=== PATIENT | female | born 1980 | race Hispanic/Latino ===

== ENCOUNTER → 2019-09-14 | Outpatient (CLI) | payer OTHER | END | disposition home or self-care (01) | LOC: RAH 13:01 | PROVIDERS: ATTEND Obstetrics & Gynecology | DX: N85.2 Hypertrophy of uterus (principal); D25.9 Leiomyoma of uterus, unspecified | CPT/HCPCS: 76830 ==

== ENCOUNTER 2025-01-24 19:43 | Emergency (ER) | payer OTHER ==
[~2025-01-24] VITALS: Ht 165.1 cm; Wt 139.3 kg
--- NOTE | 2025-01-24 20:09 | ERN ---
General Chief Complaint: Chest Pain Stated Complaint: CHEST PAIN Time Seen by MD: 19:44 Time Seen by Midlevel: 19:44 Source: patient History of Present Illness Initial Comments Patient Is a 45-year-old morbidly obese patient presenting to the emergency department for evaluation of left-sided chest pain that started 3 hours prior to arrival while she was walking around the store. She initially thought the pain was musculoskeletal in nature since over the last couple of days she has been having an increase in physical activity. She has been playing outdoor sports. She reports taking 800 mg of ibuprofen with no relief. Given that the chest pain persistent she decided to report to the ER for further evaluation. She specifically denies any shortness of breath, direct injury, or any other symptoms at this time. She reports a past medical history of hypothyroidism, and asthma. Allergies: Coded Allergies: acetaminophen (Unverified Allergy, Unknown, 01/24/25) Past Medical History Past Medical History: Asthma, Hypothyroid Past Surgical History: Other ROS Dictation CONSTITUTIONAL: Negative except for HPI HEAD/FACE: Negative except for HPI EENT: Negative except for HPI RESPIRATORY: Negative except for HPI GASTROINTESTINAL/ABDOMINAL: Negative except for HPI GENITOURINARY: Negative except for HPI MUSCULOSKELETAL: Negative except for HPI INTEGUMENTARY: Negative except for HPI NEUROLOGICAL/PSYCH: Negative except for HPI HEMATOLOGIC/LYMPHATIC: Negative except for HPI All Systems Negative, Except as noted above. 13 point review of systems assessed and all negative except for above. Physical Exam Physical Exam Dictation Vital Signs reviewed General Appearance: Alert, oriented x 3, no acute distress, well developed, nourished. Head and Face: non-traumatic. Eyes: PERRL, pink conjunctivas, eyelid no trauma, anterior chamber with arcus senilis. Ears: Pinnas intact and no signs of trauma or erythema ear canals clear and no discharge TM no erythema Nose: No discharge, no bleeding. Oropharynx: Mouth normal, tongue pink, pharynx clear,no erythema, tonsils no exudates, no abscesses noted, mucous membrane moist Neck: Supple, non-tender, no thyromegaly, no masses, no JVD, no bruits Breast:Deferred Chest:No tenderness, no crepitus, no paradoxical movement, no retractions Lungs:Clear, well-ventilated, symmetric, no rales, no wheezing, no rhonchi, no stridor, good breath sounds bilaterally Heart: Regular rate, regular rhythm, no murmur, no gallops Vascular: no peripheral edema, Abdomen: Soft, positive bowel sounds, nondistended, no guarding, nontender, no rebound, no masses no hepatomegaly, no splenomegaly, no Viramontes's sign, no hernias. Rectal: Deferred Genital: Deferred Neurological: Normal speech, motor function intact, sensory function intact Musculoskeletal: Neck nontender, full range of motion, back nontender, full range of motion, Extremities: nontender, full range of motion Skin: Color pink, dry, no turgor, no rash, no lacerations, no abrasions, no contusions. Lymphatic: Deferred Results Laboratory and Microbiology Lab and Micro Result Laboratory Tests Test 01/24/25 20:15 White Blood Count 8.5 K/uL (4.8-10.8) Red Blood Count 5.01 MIL/uL (4.00-5.50) Hemoglobin 11.4 g/dL (12.0-16.0) L Hematocrit 36.9 % (36-48) Mean Corpuscular Volume 73.7 fL (79-99) L Mean Corpuscular Hemoglobin 22.8 pg (27.0-33.0) L Mean Corpuscular Hemoglobin Concent 30.9 g/dL (32.0-36.0) L Red Cell Distribution Width 16.3 % (11.0-15.5) H Platelet Count 457 K/uL (130-400) H Mean Platelet Volume 9.1 fL (7.5-10.5) Immature Granulocyte % (Auto) 0.4 % (0-1) Neutrophils (%) (Auto) 69.1 % (40.0-77.0) Lymphocytes (%) (Auto) 24.2 % (21.0-51.0) Monocytes (%) (Auto) 4.7 % (3.0-13.0) Eosinophils (%) (Auto) 0.9 % (0.0-8.0) Basophils (%) (Auto) 0.7 % (0.0-5.0) Neutrophils # (Auto) 5.9 K/uL (1.8-7.7) Lymphocytes # (Auto) 2.1 K/uL (1.0-4.8) Monocytes # (Auto) 0.4 K/uL (0.1-1.0) Eosinophils # (Auto) 0.08 K/uL (0.00-0.70) Basophils # (Auto) 0.06 K/uL (0.00-0.20) Absolute Immature Granulocyte (auto 0.03 K/uL (0-1) Nucleated Red Blood Cells 0.0 % (0.0-0.19) Red Blood Cell Morphology See comments D-Dimer Quantitative (PE/DVT) 374 ng/mL (0-500) Sodium Level 137 mmol/L (136-145) Potassium Level 3.5 mmol/L (3.5-5.1) Chloride Level 100 mmol/L (101-111) L Carbon Dioxide Level 28 mmol/L (21-32) Blood Urea Nitrogen 11 mg/dL (7-18) Creatinine 0.8 mg/dL (0.5-1.0) Glomerular Filtration Rate Calc 93 mL/min (>90) Random Glucose 103 mg/dL (70-105) Total Calcium 9.1 mg/dL (8.5-10.1) Magnesium Level 1.70 mg/dL (1.80-2.40) L Total Creatine Kinase 53 U/L (21-232) Troponin I High Sensitivity < 4 ng/L (4-50) L B-Type Natriuretic Peptide 81 pg/mL (0-100) Serum Test, Qualitative NEGATIVE (NEGATIVE) Labs Reviewed?: Yes MDM MDM: Differential diagnosis: ACS, musculoskeletal pain, pneumonia, pneumothorax There are no social concerns with this patient. Prescription drug management Prescriptions will include: None Medical management and examination interpretation discussions were had by me with other qualified healthcare professionals as indicated for the patient's care. ED Course Orders Procedure Category Date Status Time 12 Lead Ekg Tracing- EKG 01/24/25 Logged Technical 20:02 Cbc With Differential LAB 01/24/25 Complete 20:02 Basic Metabolic Panel LAB 01/24/25 Complete 20:02 B-Type Natriuretic LAB 01/24/25 Complete Peptide 20:02 Creatine Kinase, Total LAB 01/24/25 Complete 20:02 Urinalysis Profile LAB 01/24/25 Logged 20:02 Troponin I High LAB 01/24/25 Complete Sensitivity 20:02 Drug Screen Urine LAB 01/24/25 Logged 20:02 Magnesium LAB 01/24/25 Complete 20:02 Testing, LAB 01/24/25 Complete Serum Hcg 20:02 Chest 1vw RAD 01/24/25 Resulted 20:02 D-Dimer LAB 01/24/25 Complete 20:02 Vital Signs Date Time Temp Pulse Resp B/P (MAP) Pulse Ox O2 Delivery O2 Flow Rate FiO2 01/24/25 19:56 98.4 99 20 154/[address] [facility] [address] [place] [address] IMAGING REPORT Signed PATIENT: VITALY VALENZUELA V MR#: [id number] : 1980 SEX: F AGE: 45 LOCATION: [facility] ORDER 02 STATUS: REG ER REPORT#: [id number] SERVICE 01 REASON: cp ORDERING PHYSICIAN: CARLOS HUMPHREY PROCEDURE: CXR1VW - CHEST 1VW PORTABLE CHEST RADIOGRAPH INDICATION: cp COMPARISON: None FINDINGS: Heart size is normal. The pulmonary vascularity and [place] appear normal. No abnormal pulmonary parenchymal opacity or consolidation identified. No significant pleural effusion noted. No pneumothorax detected. IMPRESSION: No radiographic evidence for any acute cardiopulmonary process. DICTATED BY: JOMAR OLMEDO MD DATE: 01/24/252117 ELECTRONICALLY SIGNED BY: JOMAR OLMEDO MD DATE: 01/24/252122 HEART Score Response (Comments) Value History: Low suspicion (0) 0 EKG: Normal 0 Age: 45-65yrs (+1) 1 Risk Factors: 1-2 risk factors (+1) 1 Initial Troponin: Normal limit (0) 0 HEART Score Risk: Low Risk for MACE (1-3) Total 2 DX & DISP Disposition: Discharge Departure Impression: Primary Impression: Non-cardiac chest pain Condition: Stable Additional Instructions: Your blood work today is unremarkable. You are not anemic. Your electrolytes are normal. Your kidney function is normal. Your cardiac enzymes are negative. You had a negative D-dimer which rules out a pulmonary embolism. Your EKG does not show any evidence of a heart attack. Your chest x-ray shows no acute cardiopulmonary abnormality. Please follow up with your primary care doctor outpatient for further evaluation. Referrals: PARUL LOCKE (PCP) Time of Disposition: 21:40 I have reviewed the case, and I agree with, Diagnosis and Plan I performed the substantive portion of the visit. I have reviewed and personally made and approve the management plan that is documented in the note by myself or the OMKAR. I acknowledge for responsibility for the patient's managem ent plan. CARLOS HUMPHREY Jan 24, 2025 20:09
[2025-01-24 20:23] LABS: BASOPHILS # (AUTO) 0.06 K/uL (0.00-0.20); BASOPHILS % (AUTO) 0.7 % (0.0-5.0); EOSINOPHILS # (AUTO) 0.08 K/uL (0.00-0.70); EOSINOPHILS % (AUTO) 0.9 % (0.0-8.0); HEMATOCRIT 36.9 % (36-48); IMMATURE GRANULOCYTE ABSOLUTE 0.03 K/uL (0-1); LYMPHOCYTES # (AUTO) 2.1 K/uL (1.0-4.8); LYMPHOCYTES % (AUTO) 24.2 % (21.0-51.0); MEAN CORPUSCULAR HEMOGLOBIN 22.8 pg (27.0-33.0); MEAN CORPUSCULAR HGB CONC 30.9 g/dL (32.0-36.0); MEAN CORPUSCULAR VOLUME 73.7 fL (79-99); MONOCYTES # (AUTO) 0.4 K/uL (0.1-1.0); MONOCYTES % (AUTO) 4.7 % (3.0-13.0); NEUTROPHILS # (AUTO) 5.9 K/uL (1.8-7.7); NEUTROPHILS % (AUTO) 69.1 % (40.0-77.0); PLATELET COUNT (AUTO) 457 K/uL (130-400); RED BLOOD CELL COUNT(AUTO) 5.01 MIL/uL (4.00-5.50); RED CELL DISTRIBUTION WIDTH 16.3 % (11.0-15.5); WHITE BLOOD COUNT (AUTO) 8.5 K/uL (4.8-10.8)
[2025-01-24 20:42] LABS: CREATININE 0.8 mg/dL (0.5-1.0); POTASSIUM 3.5 mmol/L (3.5-5.1)
[2025-01-24 20:46] LABS: B-TYPE NATRIURETIC PEPTIDE 81 pg/mL (0-100)
[2025-01-24 20:49] LABS: MAGNESIUM 1.7 mg/dL (1.80-2.40)
--- NOTE | 2025-01-24 21:23 | HMCIMG ---
PORTABLE CHEST RADIOGRAPH INDICATION: cp COMPARISON: None FINDINGS: Heart size is normal. The pulmonary vascularity and [place] appear normal. No abnormal pulmonary parenchymal opacity or consolidation identified. No significant pleural effusion noted. No pneumothorax detected. IMPRESSION: No radiographic evidence for any acute cardiopulmonary process.
[2025-01-24 23:00] VITALS: BP 149/64; PULSE 86; RESP 18; TEMP 98.2; O2SAT 95
--- NOTE | 2025-01-25 06:42 | EKG ---
[facility] Test Date: 2025-01-24 Test Time: 20:03:26 Pat Name: VITALY VALENZUELA Department: ED Room: Gender: F Mobile Paramedical Examiner: [id number] : 1980 Requested By: CARLOS HUMPHREY Order Number: [id number] Reading MD: Pedro Luis Gupta Measurements Intervals [place] Rate: 89 P: 45 MI: 165 QRS: -13 QRSD: 108 T: 1 QT: 352 QTc: 428 Interpretive Statements Sinus rhythm Low voltage, precordial leads No previous ECG available for comparison Electronically Signed On 01-25-2025 07:27:20 CDT by Pedro Luis Gupta Please click the below link to view image of tracing.
== END 2025-01-24 23:25 | disposition home or self-care (01) ==
LOC: EDH 19:43
DX: R07.89 Other chest pain (principal); J45.909 Unspecified asthma, uncomplicated; E03.9 Hypothyroidism, unspecified; E66.01 Morbid (severe) obesity due to excess calories; Z68.43 Body mass index [BMI] 50.0-59.9, adult
CPT/HCPCS: 36415; 71045; 80048; 82550; 83735; 83880; 84484; 84703; 85025; 85378; 93005; 99285